=== PATIENT | female | born 1965 | race Caucasian/White ===

== ENCOUNTER → 2019-06-30 | Outpatient (CLI) | payer BC ==
[2019-06-30 12:16] VITALS: BP 121/80; PULSE 73; RESP 18; TEMP 98.2
--- NOTE | 2019-06-30 13:12 | P.GSHP ---
History of Present Illness H&P Date: 06/30/19 Chief Complaint: abnormal mammogramof the right breast Ashley a 53-year-old white female seen in consultation for Char Deleon regarding her mammographic abnormality of the right breast. She had a bilateral mammogram in March 2019 which revealed some distortion and calcifications in the right breast. It was recommended to undergo a stereotactic core biopsy of an area of distortion as well as the microcalcifications in the right breast. It does not feel anything of concern in her breasts. She is not complaining of any pain in her breast. She is to have any nipple discharge or skin changes. She has had no recent trauma or infection in her breast. She was told when she was younger that she had fibrocystic breast disease related to caffeine intake. caffeine: occasionally chocolate: occasional smoke: none, no second hand smoke Family History: father: colon cancer Hormonal History: menarche: 11 , breast fed: no, first born at 15 menopause: 53 BCP: 5 years hormones:none Surgical history: 1. Tubal ligation 2. gallbaldder 3. knee replaced right side Medical History: none Social History: smoke: none alcohol: occasional 2x/year drugs: none - Constitutional Constitutional: Denies chills, Denies fever - EENT Eyes: denies blurred vision, denies pain Ears: deny: decreased hearing, tinnitus Ears, nose, mouth and throat: Denies headache, Denies sore throat - Breasts Breasts: bilateral: as per HPI - Cardiovascular Cardiovascular: Denies chest pain, Denies shortness of breath - Respiratory Respiratory: Denies cough, Denies 7 - Gastrointestinal Gastrointestinal: Denies abdominal pain, Denies diarrhea, Denies nausea, Denies vomiting - Genitourinary (Female) Genitourinary: Reports kidney stones - Menstruation Menstruation: Reports postmenopausal - Musculoskeletal Comment: knee pain - Integumentary Integumentary: Denies pruritus, Denies rash - Neurological Neurological: Denies numbness, Denies weakness - Psychiatric Psychiatric: Denies anxiety, Denies depression - Endocrine Endocrine: Denies fatigue, Denies weight change - Hematologic/Lymphatic Comment: none - Allergic/Immunologic Allergic/Immunologic: Reports as per HPI Past Medical History Past Medical History: Osteoarthritis (OA) History of Any Multi-Drug Resistant Organisms: None Reported Past Surgical History: Orthopedic Surgery, Tubal Ligation Additional Past Surgical History / Comment(s): ARTHROSCOPIC RIGHT AND LEFT KNEE, CONE BIOPSY Past Anesthesia/Blood Transfusion Reactions: Family History of Problems w/ Anesthesia Additional Past Anesthesia/Blood Transfusion Reaction / Comment(s): MOM GETS VERY AGITATED WITH ANESTHESIA Past Psychological History: No Psychological Hx Reported Smoking Status: Never smoker Past Alcohol Use History: Rare Past Drug Use History: None Reported - Past Family History Mother Family Medical History: No Reported History Medications and Allergies Home Medications Medication Instructions Recorded Confirmed Type Ibuprofen [Motrin] 400 mg PO Q6HR PRN 06/30/19 06/30/19 History Thrive 1 can PO DAILY 06/30/19 06/30/19 History Allergies Allergy/AdvReac Type Severity Reaction Status Date / Time adhesive tape Allergy BLISTERS Verified 06/30/19 12:16 Surgical - Exam Vital Signs Temp Pulse Resp BP Pulse Ox 98.2 F 73 18 121/80 97 06/30/19 12:12 06/30/19 12:12 06/30/19 12:12 06/30/19 12:12 06/30/19 12:12 BMI 37.1 - General obese - Eyes normal ocular movement, no icteric - ENT normal pinna, normal nares, no hearing loss, no congestion - Neck no masses, trachea midline, no lymphadectomy - Respiratory normal expansion, normal respiratory effort, clear to percussion, clear to auscultation - Cardiovascular Rhythm: regular Heart Sounds: normal: S1, S2 - Abdomen Abdomen: soft, non tender, no guarding, no rigid, no rebound - Integumentary normal turgor - Neurologic normal coordination, no disoriented, no combative - Musculoskeletal normal gait, normal posture - Psychiatric oriented to time, oriented to person, oriented to place, speech is normal, memory intact breast exam: Breasts: Multiple positional exam no dominant masses or nodules of concern, particularly attention to the upper outer quadrant did not reveal any lesions of concern Right axilla: No adenopathy of concern Left breast: Multiple positional exam no dominant masses or nodules of concern Left axilla: No adenopathy of concern Results Mammogram results from [facility] reviewed it has been recommended. An ultrasound of the right breast be performed. To ascertain if the density can be seen, if so she will have an ultrasound core biopsy of the area of density and in stereo biopsy of the area of calcifications. Assessment and Plan Assessment: Impression: 1. Abnormal mammogram right breast 2. Fibrocystic breast changes 3. Anxiety 4. History of cancer Plan: 1. Ultrasound of the right breast being performed today, if this shows the area of distortion the patient will have 2 areas biopsied in the right breast that area of distortion by ultrasound core biopsy in the area of calcification the stereo core biopsy If the ultrasound does not reveal the area of distortion then patient will have 3-D stereo biopsy of the area of distortion as well as the microcalcifications I have reviewed the radiographs with the radiologist, the area of distortion is somewhat suspicious, if this comes back benign breast tissue we may consider to be discordant. Have discussed the risks and benefits of the procedures with the patient. She understands and wishes to proceed. She is very anxious regarding needles. I have explained that the area would be anesthetized. Risk include bleeding, infection, and possible reaction to the anesthetic. There is also a possibility of a discordant result which could result in recommendation for excision in the operating room. Patient understands and wishes to proceed. Cc: Shital Cota Encounter approximately 30 minutes, greater than 50% of time spent in planning and counseling. Time with Patient: Greater than 30 (coordination of case for two areas of the right breast, ? if area of distortion can be een by ultrasound, ultrasound to be done today)
--- NOTE | 2019-07-01 07:25 | USB ---
Reason for exam: clinical finding. US Breast RT Right complete breast ultrasound includes all four quadrants, the retroareolar region and axilla. Finding demonstrates a 7 x 3 x 7mm oval lipoma at 12 o'clock. No sonographic correlate to the right architectural distortion seen on the outside mammogram. These results were verbally communicated with the patient and result sheet given to the patient on 06/30/19. ASSESSMENT: Suspicious, BI-RAD 4 RECOMMENDATION: Stereotactic core biopsy of the right breast. (3D stereo regarding right distortion and calcifications, 2 site) Called Dr. Castillo's office with mammographic findings. PRELIMINARY REPORT CALLED AND FAXED TO DR. CASTILLO ON 07/01/19.
== END ==
LOC: WWCWWP 11:57
PROVIDERS: ATTEND Surgery
DX: R92.8 Other abnormal and inconclusive findings on diagnostic imaging of breast (principal)

== ENCOUNTER → 2019-07-29 | Outpatient (CLI) | payer BC ==
[2019-07-29 14:31] VITALS: BP 105/67; PULSE 68; RESP 18; TEMP 97.9
--- NOTE | 2019-07-29 14:38 | P.PN ---
Progress Note - Text Progress Note Date: 07/29/19 Ashley is a 54 year old white female status post tactic core biopsy of the right breast on . Pathology was benign fibrocystic change no atypical hyperplasia or malignancy identified. The patient is concerned about some erythema at the site at this time. She has no fever or chills. Physical Exam: Lungs: Clear Heart: Regular rate and rhythm Right breast: Area of erythema approximately 7 cm x 5 cm it does not appear infected or raised Impression: 1. benign fibrocystic changes right breast 2. steroid cream to right breast/hydrocortisone cream to area TID, probable hypersensitivity reaction to the tape 3. Right breast mammogram in 6 months for physician exam at that time CC: Char Gates encounter 15 minutes, > 50% of time in planning and counselling
== END | disposition home or self-care (01) ==
LOC: WWCWWP 14:17
PROVIDERS: ATTEND Surgery
DX: Z53.9 Procedure and treatment not carried out, unspecified reason (principal)

== ENCOUNTER → 2020-01-26 | Outpatient (CLI) | payer BC ==
[2020-01-26 12:40] VITALS: BP 99/66; PULSE 81; RESP 16; TEMP 98.5
--- NOTE | 2020-01-26 13:08 | P.PN ---
Subjective Progress Note Date: 01/26/20 Principal diagnosis: Fibrocystic breast changes Ashley is a 54-year-old white female seen in consultation for Char Deleon on 07-29-19 regarding a mammographic abnormality of the right breast. She had a bilateral mammogram in March 2019 which revealed some distortion and calcifica tions in the right breast. It was recommended to undergo a stereotactic core biopsy of an area of distortion as well as the microcalcifications in the right breast. She did not feel anything of concern in her breasts. She was not complaining of any pain in her breast. She did not have any nipple discharge or skin changes. She had no recent trauma or infection in her breast. She was told when she was younger that she had fibrocystic breast disease related to caffeine intake. She underwent a stero biopsy on 07-21-19. Pathology was benign/concordant. The second area of architectual distortion was not seen on attempt to biopsy. A repeat right breast mammogram was done on 01-24-20. This was reviewed with DR. Copeland and felt to be benign. The patient does not feel anything of concern in e ither breast. She is not complaining of any masses lumps in her breast or discharge from her nipples. Is not complaining of any pain in her breast. No history of recent trauma or infection to the breast. caffeine: occasionally chocolate: occasional smoke: none, no second hand smoke Family History: father: colon cancer Hormonal History: menarche: 11 , breast fed: no, first born at 15 menopause: 53 BCP: 5 years hormones:none Surgical history: 1. Tubal ligation 2. gallbaldder 3. knee replaced right side Medical History: none Social History: smoke: none alcohol: occasional 2x/year drugs: none - Constitutional Constitutional: Denies chills, Denies fever - EENT Eyes: denies blurred vision, denies pain Ears: deny: decreased hearing, tinnitus Ears, nose, mouth and throat: Denies headache, Denies sore throat - Breasts Breasts: bilateral: as per HPI - Cardiovascular Cardiovascular: Denies chest pain, Denies shortness of breath - Respiratory Respiratory: Denies cough, Denies 7 - Gastrointestinal Gastrointestinal: Denies abdominal pain, Denies diarrhea, Denies nausea, Denies vomiting - Genitourinary (Female) Genitourinary: Reports kidney stones - Menstruation Menstruation: Reports postmenopausal - Musculoskeletal Comment: knee pain - Integumentary Integumentary: Denies pruritus, Denies rash - Neurological Neurological: Denies numbness, Denies weakness - Psychiatric Psychiatric: Denies anxiety, Denies depression - Endocrine Endocrine: Denies fatigue, Denies weight change - Hematologic/Lymphatic Comment: none - Allergic/Immunologic Allergic/Immunologic: Reports as per HPI Objective - Vital Signs Vital signs: Vital Signs Temp 98.5 F 01/26/20 12:35 Pulse 81 01/26/20 12:35 Resp 16 01/26/20 12:35 BP 99/66 01/26/20 12:35 Pulse Ox 95 01/26/20 12:35 Intake & Output 01/25/20 01/26/20 01/26/20 18:59 06:59 18:59 Weight 69.853 kg - Exam BMI 29.1 - Constitutional General appearance: Present: average body habitus - EENT ENT: Present: hearing grossly normal - Neck Neck: Present: normal ROM - Respiratory Respiratory: bilateral: CTA - Cardiovascular Rhythm: regular Heart sounds: normal: S1, S2 - Gastrointestinal General gastrointestinal: Present: soft - Integumentary Integumentary: Present: normal turgor - Musculoskeletal Musculoskeletal: Present: gait normal - Psychiatric Psychiatric: Present: A&O x's 3, appropriate affect, intact judgment & insight - Additional findings Additional findings: breast exam: BRA 38D inspection: grade 3 ptosis bilateral palpation: right breast: Multiple positional exam no dominant masses or nodules of concern, fibrocystic changes alignment axilla: No adenopathy of concern Left breast: Multiple positional exam no dominant masses or nodules of concern, fibrocystic changes Left axilla: No adenopathy of concern Assessment and Plan Assessment: Impression: 1. Fibrocystic breast disease bilateral Plan: 1. Repeat bilateral mammogram on schedule for June 2020 2. Follow-up at that time 3. Patient is follow up sooner if any questions or concerns Cc: Dr. Mala Martinez encounter 15 minutes, > 50% of time in planning and counselling
== END | disposition home or self-care (01) ==
LOC: WWCWWP 12:21
PROVIDERS: ATTEND Surgery
DX: Z53.9 Procedure and treatment not carried out, unspecified reason (principal)

== ENCOUNTER → 2020-07-26 | Outpatient (CLI) | payer BC ==
--- NOTE | 2020-07-27 14:09 | MM ---
Reason for exam: screening (asymptomatic). Last mammogram was performed 6 months ago. History: Patient is postmenopausal. Benign stereotactic core biopsy of the right breast, July 2019. Physical Findings: A clinical breast exam by your physician is recommended on an annual basis and results should be correlated with mammographic findings. MG Screening Mammo w CAD Bilateral CC and MLO view(s) were taken. Prior study comparison: January 24, 2020, right breast MG diagnostic mammo RT w CAD. The breast tissue is heterogeneously dense. This may lower the sensitivity of mammography. There is no discrete abnormality. No significant changes when compared with prior studies. ASSESSMENT: Negative, BI-RAD 1 RECOMMENDATION: Routine screening mammogram of both breasts in 1 year.
== END | disposition home or self-care (01) ==
LOC: RADMAMWWP 10:26
PROVIDERS: ATTEND Surgery
DX: Z12.31 Encounter for screening mammogram for malignant neoplasm of breast (principal)
CPT/HCPCS: 77067

== ENCOUNTER → 2020-08-02 | Outpatient (CLI) | payer BC ==
--- NOTE | 2020-08-02 11:47 | P.PN ---
Subjective Progress Note Date: 08/02/20 Principal diagnosis: Fibrocystic breast changes Fibrocystic breast changes Ashley is a 55-year-old white female seen in consultation for Char Deleon on 07-29-19 regarding a mammographic abnormality of the right breast. She had a bilateral mammogram in March 2019 which revealed some distortion and calcifications in the right breast. It was recommended to undergo a stereotactic core biopsy of an area of distortion as well as the microcalcifications in the right breast. She did not feel anything of concern in her breasts. She was not complaining of any pain in her breast. She did not have any nipple discharge or skin changes. She had no recent trauma or infection in her breast. She was told when she was younger that she had fibrocystic breast disease related to caffeine intake. She underwent a stero biopsy on 07-21-19. Pathology was benign/concordant. The second area of architectual distortion was not seen on attempt to biopsy. A repeat right breast mammogram was done on 01-24-20. This was reviewed with DR. Copeland and felt to be benign. The patient does not feel anything of concern in either breast. She is not complaining of any masses lumps in her breast or discharge from her nipples. Is not complaining of any pain in her breast. No history of recent trauma or infection to the breast. The patient is not complaining of any lumps masses or nodules in her breast at this time. Is not complaining of any pain, nipple discharge or skin changes. She had a bilateral mammogram on which was benign BIRADS 1. caffeine: occasionally chocolate: occasional smoke: none, no second hand smoke Family History: father: colon cancer Hormonal History: menarche: 11 , breast fed: no, first born at 15 menopause: 53 BCP: 5 years hormones:none Surgical history: 1. Tubal ligation 2. gallbaldder 3. knee replaced right side Medical History: none Social History: smoke: none alcohol: occasional 2x/year drugs: none - Constitutional Constitutional: Denies chills, Denies fever - EENT Eyes: denies blurred vision, denies pain Ears: deny: decreased hearing, tinnitus Ears, nose, mouth and throat: Denies headache, Denies sore throat - Breasts Breasts: bilateral: as per HPI - Cardiovascular Cardiovascular: Denies chest pain, Denies shortness of breath - Respiratory Respiratory: Denies cough - Gastrointestinal Gastrointestinal: Denies abdominal pain, Denies diarrhea, Denies nausea, Denies vomiting - Genitourinary (Female) Genitourinary: Reports kidney stones - Menstruation Menstruation: Reports postmenopausal - Musculoskeletal Comment: knee pain - Integumentary Integumentary: Denies pruritus, Denies rash - Neurological Neurological: Denies numbness, Denies weakness - Psychiatric Psychiatric: Denies anxiety, Denies depression - Endocrine Endocrine: Denies fatigue, Denies weight change - Hematologic/Lymphatic Comment: none - Allergic/Immunologic Allergic/Immunologic: Reports as per HPI Objective - Constitutional General appearance: Present: average body habitus - EENT Eyes: Present: EOMI ENT: Present: hearing grossly normal - Neck Neck: Present: normal ROM - Respiratory Respiratory: bilateral: CTA - Cardiovascular Rhythm: regular Heart sounds: normal: S1, S2 - Gastrointestinal General gastrointestinal: Present: normal bowel sounds, soft - Integumentary Integumentary: Present: normal turgor - Musculoskeletal Musculoskeletal: Present: gait normal - Psychiatric Psychiatric: Present: A&O x's 3, appropriate affect, intact judgment & insight - Additional findings Additional findings: breast exam: BRA 38C inspection: Bilateral grade 3 ptosis; Right breast slightly larger than left breast Palpation: Right breast: Multiple positional exam fibrocystic changes, no dominant masses or nodules of concern Right axilla: No adenopathy of concern Left breast: Multiple positional exam fibrocystic changes, no dominant masses or nodules of concern Left axilla: No adenopathy of concern Assessment and Plan Assessment: Impression: 1. Fibrocystic breast changes 2. No dominant masses or nodules of concern to warrant any anginal biopsy Plan: 1. Patient to call if she notes any changes of concern in her breast 2. Bilateral mammogram in 1 year with physician exam at that time Cc: Char Deleon encounter 15 minutes, time spent in reviewing medical records, physical examination, and counseling
[2020-08-02 11:57] VITALS: BP 105/70; PULSE 76; RESP 16; TEMP 98.3
== END | disposition home or self-care (01) ==
LOC: WWCWWP 11:36
PROVIDERS: ATTEND Surgery
DX: Z53.9 Procedure and treatment not carried out, unspecified reason (principal)

== ENCOUNTER → 2021-07-29 | Outpatient (CLI) | payer BC ==
--- NOTE | 2021-07-30 08:18 | MM ---
Reason for exam: screening (asymptomatic). Last mammogram was performed 1 year ago. History: Patient is postmenopausal. Benign stereotactic core biopsy of the right breast, July 2019. Physical Findings: A clinical breast exam by your physician is recommended on an annual basis and results should be correlated with mammographic findings. MG Screening Mammo w CAD Bilateral CC and MLO view(s) were taken. Prior study comparison: July 26, 2020, bilateral MG screening mammo w CAD. June 30, 2019, right breast US breast RT. The breast tissue is heterogeneously dense. This may lower the sensitivity of mammography. There are benign appearing vascular calcifications bilaterally. Previous mammotome biopsy in the right breast. There is no discrete abnormality. ASSESSMENT: Benign, BI-RAD 2 RECOMMENDATION: Routine screening mammogram of both breasts in 1 year.
== END | disposition home or self-care (01) ==
LOC: RADMAMWWP 09:59
PROVIDERS: ATTEND Surgery
DX: Z12.31 Encounter for screening mammogram for malignant neoplasm of breast (principal); Z78.0 Asymptomatic menopausal state
CPT/HCPCS: 77067

== ENCOUNTER → 2021-08-23 | Outpatient (CLI) | payer BC ==
[2021-08-23 11:32] VITALS: BP 112/75; PULSE 74; RESP 18; TEMP 98
--- NOTE | 2021-08-23 12:19 | P.PN ---
Subjective Progress Note Date: 08/23/21 Principal diagnosis: fibrocystic breast changes Fibrocystic breast changes Ashley is a 55-year-old white female seen in consultation for Char Deleon on 07-29-19 regarding a mammographic abnormality of the right breast. She had a bilateral mammogram in March 2019 which revealed some distortion and calcifications in the right breast. It was recommended to undergo a stereotactic core biopsy of an area of distortion as well as the microcalcifications in the right breast. She did not feel anything of concern in her breasts. She was not complaining of any pain in her breast. She did not have any nipple discharge or skin changes. She had no recent trauma or infection in her breast. She was told when she was younger that she had fibrocystic breast disease related to caffeine intake. She underwent a stero biopsy on 07-21-19. Pathology was benign/concordant. The second area of architectual distortion was not seen on attempt to biopsy. A repeat right breast mammogram was done on 01-24-20. This was reviewed with DR. Copeland and felt to be benign. The patient does not feel anything of concern in either breast. She is not complaining of any masses lumps in her breast or discharge from her nipples. Is not complaining of any pain in her breast. No history of recent trauma or infection to the breast. The patient is not complaining of any lumps masses or nodules in her breast at this time. Is not complaining of any pain, nipple discharge or skin changes. She had a bilateral mammogram on which was benign BIRADS 1. 08-23-21 Bilateral mammogram on 07-29-21 benign BIRAD 2. She is not complaining of any lumps masses or nodules of concern in either breast. She is not complaining of any nipple discharge or skin changes. She has not had any recent trauma or infection in the breast. caffeine: occasionally chocolate: occasional smoke: none, no second hand smoke Family History: father: colon cancer Hormonal History: menarche: 11 , breast fed: no, first born at 15 menopause: 53 BCP: 5 years hormones:none Surgical history: 1. Tubal ligation 2. gallbaldder 3. knee replaced right side Medical History: none Social History: smoke: none alcohol: occasional 2x/year drugs: none - Constitutional Constitutional: Denies chills, Denies fever - EENT Eyes: denies blurred vision, denies pain Ears: deny: decreased hearing, tinnitus Ears, nose, mouth and throat: Denies headache, Denies sore throat - Breasts Breasts: bilateral: as per HPI - Cardiovascular Cardiovascular: Denies chest pain, Denies shortness of breath - Respiratory Respiratory: Denies cough - Gastrointestinal Gastrointestinal: Denies abdominal pain, Denies diarrhea, Denies nausea, Denies vomiting - Genitourinary (Female) Genitourinary: Reports kidney stones - Menstruation Menstruation: Reports postmenopausal - Musculoskeletal Comment: knee pain - Integumentary Integumentary: Denies pruritus, Denies rash - Neurological Neurological: Denies numbness, Denies weakness - Psychiatric Psychiatric: Denies anxiety, Denies depression - Endocrine Endocrine: Denies fatigue, Denies weight change - Hematologic/Lymphatic Comment: none - Allergic/Immunologic Allergic/Immunologic: Reports as per HPI Objective - Vital Signs Vital signs: Vital Signs Temp 98.0 F 08/23/21 11:30 Pulse 74 08/23/21 11:30 Resp 18 08/23/21 11:30 BP 112/75 08/23/21 11:30 Pulse Ox 98 08/23/21 11:30 Intake & Output 08/22/21 08/23/21 08/23/21 18:59 06:59 18:59 Weight 72.575 kg - Exam BMI 31.2 - Constitutional General appearance: Present: cooperative - EENT Eyes: Present: EOMI ENT: Present: hearing grossly normal - Neck Neck: Present: normal ROM - Respiratory Respiratory: bilateral: CTA - Cardiovascular Rhythm: regular Heart sounds: normal: S1, S2 - Gastrointestinal General gastrointestinal: Present: soft - Integumentary Integumentary Comment(s): tattoo back Integumentary: Present: normal turgor - Musculoskeletal Musculoskeletal: Present: gait normal - Psychiatric Psychiatric: Present: A&O x's 3, appropriate affect, intact judgment & insight - Additional findings Additional findings: Breast Exam: BRA: 38D inspection: bilateral grade 3 ptosis palpation: right breast: Multi-positional exam fibrocystic changes no dominant masses or nodules of concern Right axilla: No adenopathy of concern Left breast: Multi-positional exam fibrocystic changes no dominant masses or nodules of concern Left axilla: No adenopathy of concern Assessment and Plan Assessment: Impression: Bilateral fibrocystic breast changes Recent bilateral mammogram 130 122 benign BIRADS 2 Plan: 1. Bilateral mammogram in 1 year with physician exam at that time Patient to call sooner if any questions or concerns CC: Char Deleon
== END ==
LOC: WWCWWP 10:44
PROVIDERS: ATTEND Surgery
DX: N60.12 Diffuse cystic mastopathy of left breast (principal); N60.11 Diffuse cystic mastopathy of right breast; Z91.048 Other nonmedicinal substance allergy status

== ENCOUNTER → 2022-10-17 | Outpatient (CLI) | payer BC, OTHER ==
[2022-10-17 09:19] VITALS: BP 110/66; PULSE 95; RESP 18; TEMP 97.5
--- NOTE | 2022-10-17 09:24 | P.PN ---
Subjective Progress Note Date: 10/17/22 Principal diagnosis: fibrocystic breast changes fibrocystic breast changes Ashley is a 55-year-old white female seen in consultation for Char Deleon on 07-29-19 regarding a mammographic abnormality of the right breast. She had a bilateral mammogram in March 2019 which revealed some distortion and calcifications in the right breast. It was recommended to undergo a stereotactic core biopsy of an area of distortion as well as the microcalcifications in the right breast. She did not feel anything of concern in her breasts. She was not complaining of any pain in her breast. She did not have any nipple discharge or skin changes. She had no recent trauma or infection in her breast. She was told when she was younger that she had fibrocystic breast disease related to caffeine intake. She underwent a stero biopsy on 07-21-19. Pathology was benign/concordant. The second area of architectual distortion was not seen on attempt to biopsy. A repeat right breast mammogram was done on 01-24-20. This was reviewed with DR. Copeland and felt to be benign. The patient does not feel anything of concern in either breast. She is not complaining of any masses lumps in her breast or discharge from her nipples. Is not complaining of any pain in her breast. No history of recent trauma or infection to the breast. The patient is not complaining of any lumps masses or nodules in her breast at this time. Is not complaining of any pain, nipple discharge or skin changes. She had a bilateral mammogram on which was benign BIRADS 1. 08-23-21 Bilateral mammogram on 07-29-21 benign BIRAD 2. She is not complaining of any lumps masses or nodules of concern in either breast. She is not complaining of any nipple discharge or skin changes. She has not had any recent trauma or infection in the breast. 10-17-22 Ashley had a bilateral mammogram on 08-08-22 which was BIRAD 2. The patient is not complaining of any new lumps masses or nodules of concern in either breast. She is not complaining of any nipple discharge or skin changes. She has not had any recent trauma or infection in the breast. caffeine: occasionally chocolate: occasional smoke: none, no second hand smoke Family History: father: colon cancer Hormonal History: menarche: 11 , breast fed: no, first born at 15 menopause: 53 BCP: 5 years hormones:none Surgical history: 1. Tubal ligation 2. gallbaldder 3. knee replaced right side Medical History: none Social History: smoke: none alcohol: occasional 2x/year drugs: none - Constitutional Constitutional: Denies chills, Denies fever - EENT Eyes: denies blurred vision, denies pain Ears: deny: decreased hearing, tinnitus Ears, nose, mouth and throat: Denies headache, Denies sore throat - Breasts Breasts: bilateral: as per HPI - Cardiovascular Cardiovascular: Denies chest pain, Denies shortness of breath - Respiratory Respiratory: Denies cough - Gastrointestinal Gastrointestinal: Denies abdominal pain, Denies diarrhea, Denies nausea, Denies vomiting - Genitourinary (Female) Genitourinary: Reports kidney stones - Menstruation Menstruation: Reports postmenopausal - Musculoskeletal Comment: knee pain - Integumentary Integumentary: Denies pruritus, Denies rash - Neurological Neurological: Denies numbness, Denies weakness - Psychiatric Psychiatric: Denies anxiety, Denies depression - Endocrine Endocrine: Denies fatigue, Denies weight change - Hematologic/Lymphatic Comment: none - Allergic/Immunologic Allergic/Immunologic: Reports as per HPI Objective - Vital Signs Vital signs: Intake & Output 10/16/22 10/17/22 10/17/22 18:59 06:59 18:59 Weight 83.007 kg - Constitutional General appearance: Present: cooperative - EENT Eyes: Present: EOMI - Neck Neck: Present: normal ROM - Respiratory Respiratory: bilateral: CTA - Cardiovascular Rhythm: regular Heart sounds: normal: S1, S2 - Gastrointestinal General gastrointestinal: Present: soft - Integumentary Integumentary: Present: normal turgor - Musculoskeletal Musculoskeletal: Present: gait normal - Psychiatric Psychiatric: Present: A&O x's 3, appropriate affect, intact judgment & insight - Additional findings Additional findings: Breast Exam: BRA: 38D inspection: bilateral grade 3 ptosis palpation: right breast: Multi-positional exam fibrocystic changes no dominant masses or nodules of concern Right axilla: No adenopathy of concern Left breast: Multi-positional exam fibrocystic changes no dominant masses or nodules of concern Left axilla: No adenopathy of concern Assessment and Plan Assessment: Impression: Bilateral fibrocystic breast changes Recent bilateral mammogram 08-08-23 benign BIRADS 2 Plan: 1. Bilateral mammogram in 1 year with physician exam at that time Patient to call sooner if any questions or concerns CC: Char Deleon
== END ==
LOC: WWCWWP 09:10
PROVIDERS: ATTEND Surgery
DX: N60.11 Diffuse cystic mastopathy of right breast (principal); N60.12 Diffuse cystic mastopathy of left breast; Z80.0 Family history of malignant neoplasm of digestive organs; Z91.048 Other nonmedicinal substance allergy status

== ENCOUNTER → 2023-08-10 | Outpatient (CLI) | payer OTHER ==
--- NOTE | 2023-08-11 08:39 | MM ---
Reason for Exam: Screening (asymptomatic). Last screening mammogram was performed 12 month(s) ago. Patient History: Menarche at age 10. First Full-Term at age 15. Postmenopausal. 07/2019, Benign Stereotactic Core Biopsy on the right side. Risk Values: Raay 5 year model risk: 1.3%. NCI Lifetime model risk: 7.0%. Prior Study Comparison: 07/26/2020 Bilateral Screening Mammogram, [facility]. 07/29/2021 Bilateral Screening Mammogram, [facility]. 08/08/2022 Bilateral MG screening mammo w CAD, [facility]. Tissue Density: The breast tissue is heterogeneously dense. This may lower the sensitivity of mammography. Findings: Analyzed By CAD. Right breast biopsy clip. There is no suspicious group of microcalcifications or new suspicious mass. Benign-appearing calcifications bilaterally. Overall Assessment: Benign, BI-RAD 2 Management: Screening Mammogram of both breasts in [address] [facility] will attempt to contact patient to return for supplemental views and ultrasound if indicated. Patient should continue monthly self-breast exams. A clinical breast exam by your physician is recommended on an annual basis. This exam should not preclude additional follow-up of suspicious palpable abnormalities. Note on Raya scores and lifetime risk: 1. A Raya score greater than 3% is considered moderate risk. If this is the case, consider specialist referral to assess eligibility for a risk reducing agent. 2. If overall lifetime risk for the development of breast cancer is 20% or higher, the patient may qualify for future screening with alternating mammogram and breast MRI. Electronically signed and approved by: Gerard Sanches DO
== END | disposition home or self-care (01) ==
LOC: RADMAMWWP 09:15
PROVIDERS: ATTEND Surgery
DX: Z12.31 Encounter for screening mammogram for malignant neoplasm of breast (principal); Z78.0 Asymptomatic menopausal state
CPT/HCPCS: 77063; 77067

== ENCOUNTER → 2023-08-14 | Outpatient (CLI) | payer OTHER | LOC: WWCWWP 10:09 | PROVIDERS: ATTEND Surgery | DX: R92.8 Other abnormal and inconclusive findings on diagnostic imaging of breast (principal); Z91.048 Other nonmedicinal substance allergy status ==

== ENCOUNTER 2023-12-08 05:48 | Observation (INO) | payer OTHER ==
[2023-12-04 15:26] VITALS: BMI 39.2
--- NOTE | 2023-12-07 21:13 | P.HPIHPCON ---
History of Present Illness H&P Date: 12/07/23 Chief Complaint: right sided renal stone This is a 58-year-old female with history of a 2.6 cm right-sided renal pelvic stone, causing recurrent UTIs intermittent gross hematuria and pain. Discussed with her given the size of the stone the options would be staged ureteroscopy versus PCNL risk and benefit of each approach were discussed in details, she agreed to proceed with a PCNL, aware the risk which includes but not limited to bleeding, infection, injury to nearby organs which includes but not limited to the bowel, liver, lung. Risk of anesthesia was also discussed. Discussed potential persistent UTI even with stone removal. She understood all the risk and agreed to proceed Consent for Procedure: I have explained the operation/procedure to the patient, including the risks, benefits, side effects, alternative therapies (including not receiving the proposed treatment or service), the likelihood of the patient achieving his/her goals, and potential recuperation problems for the procedure/sedation/analgesia, as well as any blood products, if indicated. I also explained to the patient the risks, benefits and side effects of the alternatives, as well as the risks related to not receiving the proposed procedure, care, treatment, or services. Past Medical History Past Medical History: Osteoarthritis (OA) Additional Past Medical History / Comment(s): KIDNEY STONES History of Any Multi-Drug Resistant Organisms: None Reported Past Surgical History: Orthopedic Surgery, Tubal Ligation Additional Past Surgical History / Comment(s): ARTHROSCOPIC RIGHT AND LEFT KNEE; benign right breast stereo biopsy 07/21/19; right knee replacement; Past Anesthesia/Blood Transfusion Reactions: Family History of Problems w/ Anesthesia Additional Past Anesthesia/Blood Transfusion Reaction / Comment(s): MOM GETS VERY AGITATED WITH ANESTHESIA Smoking Status: Never smoker - Past Family History Mother Family Medical History: No Reported History Medications and Allergies Home Medications Medication Instructions Recorded Confirmed Type Thrive-Mvi 1 tab PO DAILY 12/04/23 History U Nita-Otc 1 tab PO DAILY 12/04/23 History Venlafaxine HCl [Effexor] 37.5 mg PO DAILY 12/04/23 12/04/23 History Allergies Allergy/AdvReac Type Severity Reaction Status Date / Time adhesive tape Allergy BLISTERS Verified 10/17/22 09:16 Surgical - Exam - General no distress, moderate pain - Eyes normal ocular movement, no pale - Respiratory normal expansion, normal respiratory effort - Abdomen Abdomen: soft, non tender - Psychiatric oriented to time, oriented to person, oriented to place Assessment and Plan Assessment: OR for right-sided PCNL
[~2023-12-08 05:48] MED LIST: GENTAMICIN 120 MG in SODIUM CHLORIDE 0.9% 100 ML IVPB PRN
--- NOTE | 2023-12-08 06:32 | XR ---
EXAMINATION TYPE: XR KUB DATE OF EXAM: 12/08/2023 6:13 AM CLINICAL HISTORY: Kidney stones. TECHNIQUE: Single supine KUB image of the abdomen is obtained. COMPARISON: Prior abdominal x-ray 2011. FINDINGS: Dominant 2.6 cm right renal calculus at superior L2 level. There is a 4 mm calculus inferio r and lateral to this over the lateral right 12th rib. Just inferior to this there is 6 mm metallic f ragment. No definitive left-sided nephrolithiasis. Scattered tiny bilateral pelvic phleboliths. Overall nonobstructive bowel gas pattern. Osseous structures are intact. IMPRESSION: Dominant 2.6 cm right renal calculus.
[2023-12-08] MEDS: DEXAMETHASONE SOD PHOSPHATE 4 MG/ML 1 ML VIAL IV ONE (06:59)
[2023-12-08] MEDS: LACTATED RINGERS 1,000 ML IV SCH (06:59)
[2023-12-08] MEDS: ONDANSETRON 4 MG/2 ML VIAL IVP ONE (07:00)
[2023-12-08] MEDS ORDERED: MIDAZOLAM 2 MG/2 ML VIAL IV PRN (07:00)
[2023-12-08] MEDS: IV FLUID CONTINUATION 1,000 ML IV ONE ×2 (07:03→10:27)
[2023-12-08] MEDS ORDERED: LIDOCAINE 1% INJ 10MG/ML (20 ML MDV) ONE (07:30)
[2023-12-08] MEDS ORDERED: SUCCINYLCHOLINE CHLORIDE 200 MG/10 ML VIAL IV ONE (07:30)
[2023-12-08] MEDS ORDERED: HYDROmorphone (PF) 1 MG/ML ONE (07:30)
[2023-12-08] MEDS ORDERED: GLYCOPYRROLATE 0.2 MG/ML 2 ML VIAL ONE (07:30)
[2023-12-08] MEDS ORDERED: MIDAZOLAM 2 MG/2 ML VIAL ONE (07:30)
[2023-12-08] MEDS ORDERED: ROCURONIUM 10 MG/ML (5 ML VIAL) IV ONE (07:30)
[2023-12-08] MEDS ORDERED: NEOSTIGMINE 1 MG/ML 10 ML VIAL ONE (07:30)
[2023-12-08] MEDS ORDERED: PROPOFOL 10 MG/ML 20 ML VIAL IV ONE (07:30)
[2023-12-08] MEDS ORDERED: PHENYLEPHRINE 10 MG/ML VIAL ONE (07:30)
[2023-12-08] MEDS ORDERED: fentaNYL (PF) 50 MCG/ML 2 ML AMP ONE (07:30)
[2023-12-08] MEDS: IOPAMIDOL-370 50ML BTL MISCELLANE ONE (08:13)
--- NOTE | 2023-12-08 08:31 | P.PCN ---
Date of Procedure: 12/08/23 Preoperative Diagnosis: right renal stone, large greater than 3 cm Postoperative Diagnosis: same Procedure(s) Performed: right percutaneous access Anesthesia: DAVID Surgeon: Brian Laura Pathology: none sent Condition: stable Disposition: PACU Indications for Procedure: the patient is 58. She has a very large right renal pelvic stone and a small calyceal stone. She comes for right percutaneous nephrostolithotomy by . I have Been asked to do the percutaneous access. Description of Procedure: patient has previously been brought to the operating suite. She's been given a general anesthetic. has placed an occluding balloon ureteral catheter in the right proximal ureter. She's placed in a prone position with care to airways and extremities. After sterile prep and drape we injected the ureteral catheter with air to outline the posterior collecting system. The upper pole calyx is dilated and identified. A 21-gauge Chiba needle is introduced in the upper pole calyx. He was seen in 2 views of fluoroscopy to be in the calyx. The cope mandrel wire introduced through the Chiba needle into the collecting system and down the proximal ureter. I removed the Chiba needle and over the wire is then advanced the 6-Malay dilating catheter. Through the dilating catheter I passed an 035 straight wire into the collecting system. I then require a Kumpe catheter to direct the wire down the ureter. Advance a Kumpe catheter over the old 35 wire and exchanged the 035 wire with an 035 super stiff wire. I then over the Super Stiff wire pass the 8-10-Malay dilators. The inner dilator to removed and a second wires passed down the ureter. I then used the nephrostomy tract dilating balloon to dilate the tract to 30-Malay. Over the dilating balloon was passed the 30-Malay sheath into the collecting system.R then performs endoscopy make sure the sheath is in proper position and it is.
[2023-12-08] MEDS: HYDROmorphone 0.5 MG/0.5 ML SYRINGE IVP PRN (09:56)
[2023-12-08] MEDS ORDERED: ONDANSETRON 4 MG/2 ML VIAL IVP PRN (10:02)
[2023-12-08] MEDS ORDERED: ACETAMINOPHEN TAB 325 MG TAB PO PRN (10:02)
--- NOTE | 2023-12-08 10:02 | FL ---
EXAMINATION TYPE: FL Perc Nephrostomy New Access DATE OF EXAM: 12/08/2023 COMPARISON: NONE HISTORY: RENAL STONE TECHNIQUE: Fluoroscopy. FINDINGS: perc nephro in OR with dr. yates. fl time 330 secs and dap 4.51 IMPRESSION: As Above.
--- NOTE | 2023-12-08 10:11 | P.OP ---
Date of Procedure: 12/08/23 Preoperative Diagnosis: Right renal stone Postoperative Diagnosis: Same Procedure(s) Performed: Cystoscopy, right ureteral catheterization, PCNL (>2cm) nephrostomy tube placement Implants: none Anesthesia: DAVID Surgeon: Get Harris Estimated Blood Loss (ml): 100 Pathology: other (right renal stone) Condition: stable Disposition: PACU Indications for Procedure: This is a 58-year-old female with history of a 2.6 cm right-sided renal pelvic stone, causing recurrent UTIs intermittent gross hematuria and pain. Discussed with her given the size of the stone the options would be staged ureteroscopy versus PCNL risk and benefit of each approach were discussed in details, she agreed to proceed with a PCNL, aware the risk which includes but not limited to bleeding, infection, injury to nearby organs which includes but not limited to the bowel, liver, lung. Risk of anesthesia was also discussed. Discussed potential persistent UTI even with stone removal. She understood all the risk and agreed to proceed Operative Findings: large Right-sided renal pelvic stone Description of Procedure: Patient brought to the operating room, general anesthesia was induced. She was prepped and draped sterile fashion and placed in frog-leg position on the stretcher. Cystoscopy through the 21 English sheath was inserted per urethra, cystoscopy was performed which showed no abnormality within the bladder. The right ureter orifice was intubated with a sensor wire. Next of the balloon occlusion catheter was passed over the wire and into the kidney. Next a 16 English Montalvo was placed with return of clear urine. The catheter was secured to the occlusion balloon. At this point the patient was placed in prone position, all pressure points were padded. Next the right flank was prepped and draped in sterile fashion. Next access was obtained to the upper pole by Dr. Laura, please see his procedure note for that portion of the surgery. After 2 wires were seen going down the ureter next a a 30 English balloon dilators was used to dilate the tract, next a 30 English access sheath was advanced over the balloon under fluoroscopy into the upper pole. Next the rigid nephroscope was inserted through the access sheath, renoscopy was performed which showed a quite a large renal pelvic stone. Using the ultrasound lithotripter, the stone was fragmented, stone fragments were removed using the grasper, repeat renoscopy showed no sizable fragments or injury to the kidney, on fluoroscopy there was no radiopaque densities seen. This time I switched to the flexible cystoscope, complete renoscopy was performed which showed no injury to the kidney, or any's sizable stone fragments, I passed the scope into the proximal ureter which showed no stones going down the ureter, antegrade nephrostogram was performed which showed no filling defect along the course of the ureter. At this time a 12 English nephrostomy tube was passed over the wire through the access sheath and into the kidney, antegrade nephrostogram was performed which confirmed the nephrostomy tube to be within the renal pelvis, and there was no filling defect or evidence of contrast extravasation. At this time the access sheath was removed with the nephrostomy tube in place. The medial aspect of the incision was closed with 2-0 Vicryl, and the lateral aspect of the incision was closed with 2-0 nylon and the stitch was used to secure the nephrostomy tube in place. Sterile dressing was applied over the incision. Patient was awakened from anesthesia and taken to recovery in stable condition
[2023-12-08] MEDS: KETOROLAC 15 MG/ML 1 ML VIAL IVP SCH (10:15)
[2023-12-08] MEDS: SCOPOLAMINE 1 MG/72 HR PATCH TRANSDERM ONE (13:32)
[2023-12-08] MEDS: DEXTROSE 5%-0.45% NACL 1,000 ML IV SCH (13:38)
[2023-12-08] MEDS: HYDROmorphone 1 MG/ML 1 ML SYRINGE IVP PRN (16:59)
[2023-12-08] MEDS: HYDROcodone/APAP 5-325MG 1 EACH TAB PO PRN (18:58)
[2023-12-08] MEDS: HEPARIN SODIUM,PORCINE 5,000 UNIT/ML 1 ML VIAL SQ SCH (20:05)
[2023-12-08] MEDS: MAG HYDROX/AL HYDROX/SIMETH 30 ML CUP PO PRN (20:48)
[2023-12-09] MEDS: VENLAFAXINE HCL ER 37.5 MG CAP PO SCH (08:46)
[2023-12-09] MEDS ORDERED: VENLAFAXINE HCL 37.5 MG TAB PO SCH (09:00)
--- NOTE | 2023-12-09 09:31 | P.PN ---
Subjective Progress Note Date: 12/09/23 postoperative day #1 from a right percutaneous nephrostolithotomy. The patient is still having moderate amount of discomfort. Objective - Vital Signs Vital signs: Vital Signs Temp 97.9 F 12/09/23 07:05 Pulse 72 12/09/23 07:05 Resp 15 12/09/23 01:44 BP 111/72 12/09/23 07:05 Pulse Ox 92 L 12/09/23 07:42 FiO2 Intake & Output 12/08/23 12/09/23 12/09/23 18:59 06:59 18:59 Intake Total 1350 Output Total 335 485 Balance 1015 -485 Weight 90.9 kg Intake: IV 1350 Output: Drainage 75 150 Right Lower Posterior 75 150 Back Urine 160 335 Estimated Blood Loss 100 Other: Voiding Method Indwelling Catheter Indwelling Catheter Assessment and Plan Assessment: impression: Postoperative #1 right percutaneous nephrostolithotomy. The patient vital signs are stable and her urine is clear. She is having too much pain for discharge. The Montalvo catheter be removed. She will ambulate and eat a regular diet. I anticipate discharge within 24 hours
--- NOTE | 2023-12-10 07:23 | P.DS ---
Providers Date of admission: 12/09/23 12:35 Attending physician: Get Harris MD Primary care physician: Evangelista Dumont [place] Hospital Course: Elvis was admitted 12/08/23 for a percutaneous nephrostolithotomy. She underwent this by . she has done well. Her diet has been advanced. She is now ambulating. Her pain is under control. The urine is clear. She is voiding well. She'll be discharged home. Regular diet. She'll go home with the nephrostomy tube. She will be seen in the office on 12/14/23. She's been given prescription of [place] and Keflex. Patient Condition at Discharge: Good Plan - Discharge Summary Discharge Rx Participant: Yes New Discharge Prescriptions: New HYDROcodone/APAP 5-325MG [[place] 5-325] 1 tab PO Q4HR PRN #14 tab PRN Reason: Pain Cephalexin [Keflex] 500 mg PO Q8HR 1 Days #20 cap No Action U Nita-Otc 1 tab PO DAILY Venlafaxine HCl [Effexor] 37.5 mg PO DAILY Thrive-Mvi 1 tab PO DAILY Discharge Medication List Thrive-Mvi 1 tab PO DAILY 12/04/23 [History] U Nita-Otc 1 tab PO DAILY 12/04/23 [History] Venlafaxine HCl [Effexor] 37.5 mg PO DAILY 12/04/23 [History] Cephalexin [Keflex] 500 mg PO Q8HR 1 Days #20 cap 12/10/23 [Rx] HYDROcodone/APAP 5-325MG [[place] 5-325] 1 tab PO Q4HR PRN #14 tab 12/10/23 [Rx] Follow up Appointment(s)/Referral(s): Get Harris MD [STAFF PHYSICIAN] - 12/14/23 (home with n tube) Discharge Disposition: HOME SELF-CARE
[2023-12-10 07:43] VITALS: BP 111/71; PULSE 82; TEMP 97.9
[2023-12-10 08:45] VITALS: RESP 16
== END 2023-12-10 13:52 | disposition home or self-care (01) ==
LOC: OR 05:48 → 4SSUR 09:30 → OR 12-09 12:35
PROVIDERS: ADMIT Urology; ATTEND Urology
DX: N20.1 Calculus of ureter (principal); N20.0 Calculus of kidney; Z87.440 Personal history of urinary (tract) infections; Z87.442 Personal history of urinary calculi
CPT/HCPCS: 50081; 96376 ×3; 96372 ×3; 96374; 96375; 94760; 86900; 86901; 86850; 82365; 74018; G0378 ×2; C1769 ×3; C1729 ×2; J2250; J0330; J1644 ×3; J1100; J2710; J0690; J2405; J2001; J3010; J1170 ×4; J1885 ×3; J2704; Q9967; J2371; 50432

== ENCOUNTER → 2024-09-09 | Outpatient (CLI) | payer BC ==
--- NOTE | 2024-09-09 09:29 | MM ---
Reason for Exam: Screening (asymptomatic). Last mammogram was performed 1 year(s) and 1 month(s) ago. Patient History: Menarche at age 10. First Full-Term at age 15. Postmenopausal. 07/2019, Benign Stereotactic Core Biopsy on the right side. Risk Values: Raya 5 year model risk: 1.3%. NCI Lifetime model risk: 6.9%. Prior Study Comparison: 07/29/2021 Bilateral Screening Mammogram, [facility]. 08/08/2022 Bilateral MG screening mammo w CAD, [facility]. 08/10/2023 Bilateral MG 3D screening mammo w/cad, [facility]. Tissue Density: There are scattered areas of fibroglandular density. Findings: Analyzed By CAD. There is no suspicious group of microcalcifications or new suspicious mass in either breast. Overall Assessment: Negative, BI-RAD 1 Management: Screening Mammogram of both breasts in 1 year. . Patient should continue monthly self-breast exams. A clinical breast exam by your physician is recommended on an annual basis. This exam should not preclude additional follow-up of suspicious palpable abnormalities. Note on Raya scores and lifetime risk: 1. A Raya score greater than 3% is considered moderate risk. If this is the case, consider specialist referral to assess eligibility for a risk reducing agent. 2. If overall lifetime risk for the development of breast cancer is 20% or higher, the patient may qualify for future screening with alternating mammogram and breast MRI. [facility], , 09/09/2024 9:26 AM. Electronically signed and approved by: Misael Cox M.D. Radiologis
== END | disposition home or self-care (01) ==
LOC: RADMAMWWP 09:10
PROVIDERS: ATTEND Family Medicine
DX: Z12.31 Encounter for screening mammogram for malignant neoplasm of breast (principal); R92.323 Mammographic fibroglandular density, bilateral breasts; Z78.0 Asymptomatic menopausal state
CPT/HCPCS: 77063; 77067

== ENCOUNTER → 2025-01-09 | Outpatient (CLI) | payer OTHER ==
[2025-01-09 15:49] LABS: INR 0.94 sec (0.93-1.11); Prothrombin Time 10.6 sec (9.9-11.9)
[2025-01-09 15:51] LABS: Anion Gap 9.60 mmol/L (4.00-12.00); BUN/Creat Ratio 22.00 Ratio (12.00-20.00); Blood Urea Nitrogen 17.6 mg/dL (9.0-27.0); Calcium 9.1 mg/dL (8.7-10.3); Carbon Dioxide 24.4 mmol/L (21.6-31.8); Chloride 105 mmol/L (96-109); Glucose 102 mg/dL (70-110); Potassium 4.8 mmol/L (3.5-5.5); Sodium 139 mmol/L (135-145)
[2025-01-09 16:09] LABS: Basophils # (A) 0.07 X 10*3/uL (0.00-0.10); Basophils % (A) 1.1 %; Eosinophils # (A) 0.30 X 10*3/uL (0.04-0.35); Eosinophils % (A) 4.6 %; HCT 41.8 % (37.2-46.3); HGB 13.1 g/dL (12.0-15.0); Immature Grans, Automated 0.30 %; Lymphocytes # (A) 1.84 X 10*3/uL (0.90-5.00); Lymphocytes % (A) 28.0 %; MCH 28.2 pg (27.0-32.0); MCHC 31.3 g/dL (32.0-37.0); MCV 89.9 FL (80.0-97.0); Monocytes # (A) 0.54 X 10*3/uL (0.20-1.00); Monocytes % (A) 8.2 %; NRBC Per 100 WBC 0 X 10*3/uL (0.00-0.01); Neutrophils # (A) 3.80 X 10*3/uL (1.80-7.70); Neutrophils % (A) 57.8 %; Platelet Count 377 X 10*3/uL (140-440); RBC 4.65 X 10*6/uL (4.10-5.20); RDW 13.9 % (11.5-14.5); WBC 6.57 X 10*3/uL (4.50-10.00)
== END | disposition home or self-care (01) ==
LOC: LABPAT 08:39
PROVIDERS: ATTEND Orthopaedic Surgery
DX: Z01.818 Encounter for other preprocedural examination (principal); Z22.322 Carrier or suspected carrier of Methicillin resistant Staphylococcus aureus; M17.12 Unilateral primary osteoarthritis, left knee
CPT/HCPCS: 36415; 80048; 85025; 85610; 87070; 93005

== ENCOUNTER 2025-01-24 07:53 | Day surgery (SDC) | payer BC, OTHER ==
[2025-01-19 08:44] VITALS: BMI 38.7
--- NOTE | 2025-01-23 08:15 | P.HPOR ---
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 She is having anterior medial pain with weightbearing activities. She notes intermittent giving way. She has been limping. She has tried medications in addition to previous injections without much relief. She had a previous arthroscopy 10 years ago. Review of Systems Per HPI Past Medical History Past Medical History: Osteoarthritis (OA) Additional Past Medical History / Comment(s): KIDNEY STONES, L knee pain History of Any Multi-Drug Resistant Organisms: None Reported Past Surgical History: Cholecystectomy, Orthopedic Surgery, Tubal Ligation Additional Past Surgical History / Comment(s): ARTHROSCOPIC RIGHT AND LEFT KNEE; benign right breast stereo biopsy 07/21/19; right knee replacement Past Anesthesia/Blood Transfusion Reactions: Family History of Problems w/ Anesthesia Additional Past Anesthesia/Blood Transfusion Reaction / Comment(s): MOM GETS VERY AGITATED WITH ANESTHESIA; no hx of blood transfusion Smoking Status: Never smoker - Past Family History Mother Family Medical History: No Reported History Additional Family Medical History / Comment(s): Maternal grandmother had CA- unknown Medications and Allergies Home Medications Medication Instructions Recorded Confirmed Type Thrive-Mvi 1 tab PO DAILY 12/04/23 01/18/25 History Venlafaxine HCl [Effexor] 37.5 mg PO QAM 12/04/23 01/18/25 History Allergies Allergy/AdvReac Type Severity Reaction Status Date / Time adhesive tape Allergy BLISTERS Verified 01/18/25 15:57 Physical Examination - Knee left Appearance: effusion Effusion grade: grade 3 Varus alignment in stance: 10 degrees Tenderness with palpation: anterior, medial Pain: throughout ROM Gait: limping ROM: extension: -10 degrees ROM: flexion: 85 degrees Meniscal tests: medial meniscal tests: positive, medial joint line pain: positive Results The patient is a well-developed well-nourished female approximately 5 foot tall, 200 pounds of endomorphic habitus. HEENT exam is nonfocal, neck is supple. She has painless passive motion of the left hip. Straight leg raise is n egative. She is tender about the medial joint line of the left knee. Collaterals are stable, Manuelito is negative, Nevaeh's is equivocal. Her distal neurovascular exam appears intact in the left lower extremity. - Diagnostic results Knee x-ray: image reviewed (Trays of the left knee obtained the office show severe medial and patellofemoral compartment osteoarthrosis with subchondral sclerosis and cystic changes. There is distal medial femoral subluxation.) Assessment and Plan Assessment: Left knee severe medial and patellofemoral compartment osteoarthrosis Plan: I talked to the patient at length regarding her condition along with treatment options. At this point she is quite symptomatic having pain and mechanical symptoms related to her left knee osteoarthrosis despite conservative measures. After a thorough discussion she opts to proceed with surgery. We will plan to proceed with a left total knee arthroplasty. Risks and benefits were discussed at length in layman's terms. We will institute DVT prophylaxis postoperatively.
[~2025-01-24 07:53] MED LIST changes: -GENTAMICIN 120 MG in SODIUM CHLORIDE 0.9% 100 ML IVPB PRN; +TRANEXAMIC 1,000 MG/100ML-NACL 1,000 MG in SALINE 1 100ML.BAG IVPB PRN
[2025-01-24] MEDS ORDERED: HYDROmorphone 0.5 MG/0.5 ML SYRINGE IVP PRN ×2 (08:16→11:46)
[2025-01-24] MEDS: ACETAMINOPHEN TAB 500 MG TAB PO PRN (08:45)
[2025-01-24] MEDS: MELOXICAM 7.5 MG TAB PO PRN (08:45)
[2025-01-24] MEDS: LIDOCAINE 1% (10MG/ML) FOR IV START INTRADERMA STA (08:55)
[2025-01-24] MEDS: IV FLUID CONTINUATION 1,000 ML IV ONE (08:55)
[2025-01-24] MEDS: LACTATED RINGERS 1,000 ML IV SCH (08:55)
[2025-01-24] MEDS: DEXAMETHASONE SOD PHOSPHATE 4 MG/ML 1 ML VIAL IV ONE (08:57)
[2025-01-24] MEDS: ONDANSETRON 4 MG/2 ML VIAL IVP ONE (08:57)
[2025-01-24] MEDS: fentaNYL (PF) 50 MCG/ML 2 ML AMP IVP PRN (09:32)
[2025-01-24] MEDS: MIDAZOLAM 2 MG/2 ML VIAL IV PRN (09:32)
[2025-01-24] MEDS ORDERED: PROPOFOL 10 MG/ML 20 ML VIAL IV ONE (09:58)
[2025-01-24] MEDS ORDERED: ROPIVACAINE 5 MG/ML 30 ML VIAL ONE (09:58)
[2025-01-24] MEDS ORDERED: PHENYLEPHRINE-0.9% NACL SYG 1,000 MCG/10 ML SYRINGE ONE (09:58)
[2025-01-24] MEDS ORDERED: SODIUM CHLORIDE 0.9% (PF) 10 ML VIAL ONE (09:58)
[2025-01-24] MEDS ORDERED: DEXAMETHASONE SOD PHOSPHATE 4 MG/ML 1 ML VIAL ONE (09:58)
[2025-01-24] MEDS ORDERED: fentaNYL (PF) 50 MCG/ML 2 ML AMP ONE (09:58)
[2025-01-24] MEDS ORDERED: MIDAZOLAM 2 MG/2 ML VIAL ONE (09:58)
[2025-01-24] MEDS ORDERED: TRANEXAMIC 1,000 MG/100ML-NACL PREMIX BAG ONE (09:58)
[2025-01-24] MEDS ORDERED: ONDANSETRON 4 MG/2 ML VIAL ONE (09:58)
--- NOTE | 2025-01-24 10:30 | P.ANPRN ---
Procedure Note - Anesthesia - Nerve Block Performed Left Adductor Canal Infusion Time Out Performed: Yes (0932) Date of Procedure: 01/24/25 Procedure Start Time: :33 Procedure Stop Time: :38 Location of Patient: PreOp Indication: Acute Post-Operative Pain, Requested by Surgeon Specifically requested for management of pain by : Robi Matta Sedation Type: Sedate with meaningful contact maintained Preparation: Sterile Prep, Sterile Dressing Position: Supine Catheter Depth at Skin (cm): 8 Catheter: Indwelling Needle Types: Pajunk Needle Gauge: 18 Ultrasound used to visualize needle placement: Yes Ultrasound used to observe medication spread: Yes Injectate: 0.5% Ropivacaine (see comment for volume) (15cc+10cc nacl pf+decadron 4mg) Blood Aspirated: No Pain Paresthesia on Injection Noted: No Resistance on Injection: Normal Image Stored and Saved: Yes Events: Uneventful and Well Tolerated
--- NOTE | 2025-01-24 10:31 | P.ANPRN ---
Procedure Note - Anesthesia - Nerve Block Performed Left iPack Single Time Out Performed: Yes (0932) Date of Procedure: 01/24/25 Procedure Start Time: :39 Procedure Stop Time: :42 Location of Patient: PreOp Indication: Acute Post-Operative Pain, Requested by Surgeon Specifically requested for management of pain by DrTiffani: Robi Matta Sedation Type: Sedate with meaningful contact maintained Preparation: Sterile Prep Position: Supine Catheter: None Needle Types: Pajunk Needle Gauge: 21 Ultrasound used to visualize needle placement: Yes Ultrasound used to observe medication spread: Yes Injectate: 0.5% Ropivacaine (see comment for volume) (15cc+10cc nacl pf+decadron 4mg) Blood Aspirated: No Pain Paresthesia on Injection Noted: No Resistance on Injection: Normal Image Stored and Saved: Yes Events: Uneventful and Well Tolerated
[2025-01-24] MEDS: LACTATED RINGERS 1,000 ML IV ONE (10:51)
[2025-01-24] MEDS ORDERED: ONDANSETRON 4 MG/2 ML VIAL IVP PRN (11:46)
[2025-01-24] MEDS ORDERED: MAGNESIUM HYDROXIDE 2,400 MG/30 ML CUP PO PRN (11:46)
[2025-01-24] MEDS ORDERED: NALOXONE 0.4 MG/ML 1 ML VIAL IV PRN (11:46)
[2025-01-24] MEDS ORDERED: HYDROcodone/APAP 5-325MG 1 EACH TAB PO PRN (11:46)
[2025-01-24] MEDS ORDERED: HYDROmorphone 1 MG/ML 1 ML SYRINGE IVP PRN (11:46)
--- NOTE | 2025-01-24 12:07 | P.OP ---
Date of Procedure: 01/24/25 Preoperative Diagnosis: Left knee severe tricompartmental osteoarthrosis Postoperative Diagnosis: Same Procedure(s) Performed: Left total knee arthroplastyposterior stabilizedcemented Implants: DePuy attune size 5 narrow cemented femoral component, size 4 cemented tibial component with a 14 x 50 mm stem extension, 9 mm articular surface, 32 mm cemented patellar component. This is a posterior stabilized implant. Anesthesia: regional, spinal Surgeon: Robi Matta Drywall Finisher Foreman #1: Abisai Moeller Estimated Blood Loss (ml): 50 Pathology: none sent Condition: stable Disposition: PACU Indications for Procedure: The patient is a 59-year-old female who presents with progressive left knee pain secondary to osteoarthrosis despite conservative measures. A discussion of the risks and benefits of operative intervention versus continued conservative measures was made with the patient. She opted to proceed with surgery. Operative risks include infection, neurovascular injury, development of blood clots, fracture, possible component loosening/failure and possible need for subsequent procedures was discussed. Informed consent was obtained. Operative Findings: As below Description of Procedure: The patient was brought to the operating room, and after induction of spinal anesthesia the left lower extremity was prepped and draped in a normal fashion. The tourniquet was inflated to 270 mm marker. A longitudinal incision extending 3 finger breaths above the superior pole of patella extending to the medial aspect the tibial tubercle was then made. The skin and subcutaneous tissues were divided sharply. Electrocautery was used for hemostasis. A medial parapatellar arthrotomy was performed. The medial soft tissues to include the superficial and deep portions of the medial collateral ligament were elevated subperiosteally. The patella was everted. A portion of the retropatellar fat pad was excised sharply. The anterior cruciate ligament was sacrificed. Blunt retractors were placed. A starting hole was made in the distal femur 1 cm anterior to the posterior cruciate ligament origin. An intramedullary femoral guide was then inserted planning on 5 valgus distal cut with 9 mm distal resection. The cutting block was pinned in place. The distal cut was then made. The posterior referencing sizing guide was utilized. I felt size 5 narrow was most appropriate. 3 of external rotation was built into the system and verified off the trans-epicondylar axis and the posterior condyles. The cutting block was pinned in place. The anterior, posterior, and chamfer cuts then made. Bone fragments were removed. The intercondylar guide was placed and the notch cut was made with a sagittal saw. The bone block was removed in one fragment. The trial component was then placed. There is good anterior to posterior and medial to lateral fit. The distal peg holes were drilled. The trial component was removed. Attention was then paid towards preparing the proximal tibia. An extra medullary guide was utilized in line with the tibial shaft and second metatarsal distally. I planned on 2 mm resection from the medial compartment. The cutting block was pinned in place. The proximal tibial cut was then made. The bone was removed in one fragment. The remnants of the medial and lateral menisci were excised at the capsular junction with electrocau sindy. The tibia sized most appropriately at size 4. The trial femoral and tibial components were placed along with a 9 mm articular surface. I was able to obtain full flexion and extension with internal and external rotation. After several flexion and extension cycles, the tibial rotation was marked with electrocautery line with the medial one third of the tibial tubercle. Attention was then paid towards preparing the patella. A patella reamer was utilized taking stem to 14 mm of bone stock. A good flush cut was made. The patella sized most appropriately 32 mm. The peg holes were drilled. The trial components placed. I had good patellofemoral tracking with no hands technique. The trial components were then removed. The tibia was prepared in the appropriate rotation with appropriate drill and keel punch. The posterior osteophytes were removed with a curved osteotome. The flexion and extension gaps were checked and felt to be symmetric at 9 mm. A trial components were t hen removed. The bony surfaces were prepared with pulsatile lavage and dried. The tibial component was then cemented place was fully seated. Excess cement was removed. The femoral component cemented place and was fully seated. Excess cement was removed. The trial 9 mm articular surface was placed and the knee was put in full extension. The patella component was cemented place. After the cement had sufficiently hardened, the knee was again taken through a range of motion. Again I was able to obtain full flexion and extension with varus and valgus stress. The trial 9 mm articular surface was removed and the final one inserted. This was fully seated. Care was taken to avoid any soft tissue interposition. Pulsatile lavage was again utilized. The medial parapatellar arthrotomy was closed with #2 Ethibond suture. The tourniquet was deflated with approximately 60 minutes total tourniquet time. Final hemostasis was obtained with the cautery. There was minimal bleeding therefore a deep drain was not placed. The subcutaneous tissues were reapproximated with interrupted 2-0 Vicryl sutures. The skin was reapproximated with 3-0 subcuticular strata fix suture. Skin tape and adhesive was applied. A sterile dressing was applied. The patient was awoken from sedation and transferred to recovery room in good condition. Blood loss was estimated at 50 mL. No complications were incurred. Sponge and needle counts were correct at the end of the case. Abisai KAMARA assisted during the major components of this case to include exposure, bone resection, implantation, and closure.
--- NOTE | 2025-01-24 12:46 | XR ---
EXAMINATION TYPE: XR knee limited LT DATE OF EXAM: 01/24/2025 12:30 PM INDICATION: Patient age:Female; 59 years old; Reason for study: POST SURGICAL XRAY; [facility]. pain COMPARISON: Left knee radiograph 01/02/2025 TECHNIQUE: The Left knee(s) was examined in frontal and lateral projections. FINDINGS: Status post total knee arthroplasty changes with hardware in appropriate alignment and in tact. No evidence of fracture. Subcutaneous lucencies and lucencies within the joint consistent with surgical changes. IMPRESSION: Status post total knee arthroplasty changes with hardware intact and appropriate alignment. No fractu res identified. [facility], , 01/24/2025 12:43 PM
[2025-01-24] MEDS: ROPIVACAINE 1,100 MG, SODIUM CHLORIDE 0.9% 500 ML 330 ML, EMPTY PAIN BALL 1 EACH MISCELLANE PRN (14:18)
[2025-01-24] MEDS: HYDROcodone/APAP 7.5-325MG 1 EACH TAB PO PRN (14:30)
[2025-01-24] MEDS: SCOPOLAMINE 1 MG/72 HR PATCH TRANSDERM ONE (15:49)
[2025-01-24] MEDS: SENNOSIDES-DOCUSATE SODIUM 1 EACH TAB PO SCH (19:54)
[2025-01-24 23:07] VITALS: RESP 16
--- NOTE | 2025-01-25 01:50 | CONS ---
CONSULTATION REASON FOR CONSULTATION: Advice regarding DJD and other medical issues, requested by Orthopedics. HISTORY OF PRESENT ILLNESS: This is a 59-year-old female with a past medical history of kidney stones, DJD, was having low blood pressure, underwent left total knee arthroplasty. There is no history of fever, rigors, or chills. No history of cough or sputum at this time. The blood pressure has improved to 106/68 at this time. PAST MEDICAL HISTORY: History of DJD, history of kidney stones. Rest of history and chart are also reviewed. MEDICATIONS: Effexor XR. ALLERGIES: Adhesive tapes. FAMILY HISTORY: History of cancer. SOCIAL HISTORY: No history of smoke or alcohol. REVIEW OF SYSTEMS: Fourteen-point review of systems negative except as mentioned earlier. PHYSICAL EXAMINATION: VITAL SIGNS: Pulse 76, blood pressure 106/68, respirations 14. HEENT: Conjunctivae normal. NECK: No JVD. CARDIOVASCULAR: S1 and S2. ABDOMEN: Soft, nontender. LEGS: Status post knee arthroplasty. NERVOUS SYSTEM: Nonfocal. LABS: Not available. ASSESSMENT: 1. Status post left knee arthroplasty. 2. History of DJD. 3. History of kidney stones. 4. History of anxiety. RECOMMENDATIONS AND DISCUSSION: This 59-year-old woman presented after surgery. She is medically stable at this time. I recommend to continue the current management. DVT prophylaxis. Incentive spirometry. The patient may be asked to follow up with the primary physician closely after discharge. Encourage p.o. fluids. We will follow the patient closely. KIRA / SHERRIEN: [id number] /
--- NOTE | 2025-01-25 06:27 | P.PN ---
Progress Note - Text Progress Note Date: 01/25/25 Postoperative day # 1 status post total knee arthroplasty, and adductor canal catheter placed for postoperative analgesia, currently at ropivacaine 0.2% 8 mL per hour and continuous infusion, visual analogue scale is 3/10, patient using oral pain medication for breakthrough pain. Assessment and plan= Acute postoperative pain, adductor canal catheter for pain control, pain is well controlled we'll continue the same management.
[2025-01-25 07:55] VITALS: BP 102/66; PULSE 73; TEMP 97.8
[2025-01-25 07:56] LABS: Basophils # (A) 0.01 X 10*3/uL (0.00-0.10); Basophils % (A) 0.1 %; Eosinophils # (A) 0.01 X 10*3/uL (0.04-0.35); Eosinophils % (A) 0.1 %; HCT 35.1 % (37.2-46.3); HGB 11.0 g/dL (12.0-15.0); Immature Grans, Automated 0.30 %; Lymphocytes # (A) 1.25 X 10*3/uL (0.90-5.00); Lymphocytes % (A) 8.0 %; MCH 28.5 pg (27.0-32.0); MCHC 31.3 g/dL (32.0-37.0); MCV 90.9 FL (80.0-97.0); Monocytes # (A) 0.96 X 10*3/uL (0.20-1.00); Monocytes % (A) 6.1 %; NRBC Per 100 WBC 0 X 10*3/uL (0.00-0.01); Neutrophils # (A) 13.36 X 10*3/uL (1.80-7.70); Neutrophils % (A) 85.4 %; Platelet Count 281 X 10*3/uL (140-440); RBC 3.86 X 10*6/uL (4.10-5.20); RDW 13.9 % (11.5-14.5); WBC 15.64 X 10*3/uL (4.50-10.00)
[2025-01-25] MEDS: MULTIVITAMINS, THERA 1 EACH TAB PO SCH (08:53)
[2025-01-25] MEDS: RIVAROXABAN 10 MG TAB PO SCH (08:53)
[2025-01-25] MEDS: VENLAFAXINE HCL ER 37.5 MG CAP PO SCH (08:53)
--- NOTE | 2025-01-25 12:15 | P.DS ---
Providers Date of admission: 01/24/2025 Expected date of discharge: 01/25/25 Attending physician: Robi Matta Consults: 01/24/25 11:46 Consult Physician Routine Consulting Provider: Marv Landers Consult Reason/Comments: medical management s/p left total knee arthroplasty Do you want consulting provider notified?: Yes Primary care physician: Samantha Aranda MD Hospital Course: Date of admission: 01/24/2025 Date of discharge: 01/25/2025 Admission diagnosis: Left knee osteoarthritis Discharge diagnosis: Same Attending physician: Dr. Matta Surgical procedures: Left total knee arthroplasty Brief history: Patient is a 59-year-old female with a history of progressive primary left knee osteoarthritis. At this point patient has failed conservative treatment measures and has opted to proceed with a elective left total knee arthroplasty. Hospital course: Details of patient's surgery can be found in operative report. Patient tolerated the procedure well and was subsequently transported to orthopedic floor. Patient's orthopeidc and medical care was provided daily. Patient had daily laboratory tests performed for evaluation of overall blood counts. Patient had daily physical therapy to include strengthening range of motion as well as education with walker ambulation. Patient was treated with Xarelto for their postoperative DVT prophylaxis during their inpatient stay. Patient was noted to have a relatively uneventful postoperative course. Patient reported satisfactory pain control with oral pain medications by postoperative day 1. Patient showed satisfactory progress with physical therapy. Patient moved steadily through the program and had no difficulty meeting the goals by postoperative day 1. Given patient's otherwise satisfactory course and having met physical therapy goals, plan is to discharge patient home with health services on postoperative day 1. Discharge condition/disposition: Patient will be discharged home with health services in stable condition. Discharge medications: Instructions are given on resumption of patient's normal daily medications per primary care recommendation, in addition patient will be prescribed [place]; senna; Eliquis 2.5 mg twice daily x 2 weeks. Discharge instructions: 1. Wound care and infection precautions, keep incision dry and covered while showering, no lotions, creams, moisturizers. No soaking, tubs, pools, hottubs. Do not scrub over the incision. 2. Weight-bear as tolerated with walker / cane until follow-up. 3. Ice and elevate when necessary. Do not exceed 20 minutes per hour with ice pack. 4. Utilize compression sleeve until seen at first follow up appointment. 5. Visiting nursing care. 6. Home physical therapy including home CPM. 7. Pain meds and anticoagulants per prescription. 8. Pain medication has potential to cause constipation. Increase oral fluid and fiber intake. Contact primary care provider if you have not had a bowel movement within 48 hours after discharge 9. No anti-inflammatory medication until discussed at first post operative visit, this including Motrin, Aleve, Mobic, Diclofenac. 10. Follow up in office at 2 weeks postop with Fletcher Mcintosh PA-C / Abisai Moeller PA-C 11. Follow up with your primary care doctor 7-10 days after discharge. 12. Contact [facility] with any questions, . Assessment: Left knee osteoarthritis Procedures: Left total knee arthroplasty Patient Condition at Discharge: Good Plan - Discharge Summary Discharge Rx Participant: Yes New Discharge Prescriptions: New Apixaban [Eliquis] 2.5 mg PO BID #60 tab Sennosides/Docusate Sodium [Senna Plus 8.6-50 mg Softgel] 1 each PO DAILY #20 capsule HYDROcodone/APAP 7.5-325MG [[place] 7.5-325] 1 - 2 tab PO Q6HR PRN 3 Days #32 tab PRN Reason: Pain No Action Venlafaxine HCl [Effexor] 37.5 mg PO QAM Thrive-Mvi 1 tab PO DAILY Discharge Medication List Thrive-Mvi 1 tab PO DAILY 12/04/23 [History] Venlafaxine HCl [Effexor] 37.5 mg PO QAM 12/04/23 [History] Apixaban [Eliquis] 2.5 mg PO BID #60 tab 01/25/25 [Rx] HYDROcodone/APAP 7.5-325MG [[place] 7.5-325] 1 - 2 tab PO Q6HR PRN 3 Days #32 tab 01/25/25 [Rx] Sennosides/Docusate Sodium [Senna Plus 8.6-50 mg Softgel] 1 each PO DAILY #20 capsule 01/25/25 [Rx] Follow up Appointment(s)/Referral(s): Abisai Moeller, JH [PHYSICIAN VBA PROGRAMMER] - 02/13/25 8:15 am [facility],Equipment [NON-STAFF] - As Needed (Call [facility] once home to arrange delivery of the CPM machine. ) Samantha Aranda MD [Primary Care Provider] - 1 Week [facility], [NON-STAFF] - 1-2 Days ([facility] will call you to schedule your in home physical therapy and nursing visits.) Patient Instructions/Handouts: Knee Replacement (GEN) Activity/Diet/Wound Care/Special Instructions: Orthopedic Discharge Instructions: 1. Wound care and infection precautions, keep incision dry and covered while showering, no lotions, creams, moisturizers. No soaking, pools, hot tubs. Do not scrub over incision. 2. Weight-bear as tolerated with walker / cane until follow-up. 3. Ice and elevate when necessary. Do not exceed 20 minutes per hour with ice pack. 4. Utilize compression sleeve until seen at first follow up appointment. 5. Pain meds and anticoagulants per prescription. 6. Pain medication has potential to cause constipation. Increase oral fluid and fiber intake. Contact primary care provider if you have not had a bowel movement within 48 hours after discharge. 7. No anti-inflammatory medication until discussed at first post operative visit, this including Motrin, Aleve, Mobic, Diclofenac. 8. Follow up in office at 2 weeks postop with Fletcher Mcintosh PA-C / Abisai Moeller PA-C 9. Follow up with your primary care doctor 7-10 days after discharge. 10. Contact [facility] with any questions, . Keep incision clean, dry, intact. While showering, cover dressing with Saran wrap. Keep fusion tape on until follow-up appointment in office in 2 week Discharge Disposition: HOME WITH HOME HEALTH SERVICES
--- NOTE | 2025-01-25 12:22 | P.PN ---
Subjective Progress Note Date: 01/25/25 Principal diagnosis: Left knee osteoarthritis Patient was seen at bedside this morning lying in semirecumbent position with dressing over left knee. Patient says she just finished working with therapy and walked out of the hallway and up and down stairs. She says her pain is un myron control with oral medication. She says she has been urinating since surgery yesterday without issue. States she has not had a bowel movement yet, however, patient says she has been passing gas. Patient denies any other issues at this time. Objective - Vital Signs Vital signs: Vital Signs Temp 97.8 F 01/25/25 07:54 Pulse 73 01/25/25 07:54 Resp 16 01/25/25 07:54 BP 102/66 01/25/25 07:54 Pulse Ox 98 01/25/25 07:54 FiO2 Intake & Output 01/24/25 01/25/25 01/25/25 18:59 06:59 18:59 Intake Total 1550 Output Total 50 Balance 1500 Weight 90.6 kg Intake: IV 1550 Output: Estimated Blood Loss 50 Other: # Voids 1 2 # Bowel Movements 0 - Exam Left knee: Incision is clean, dry, and intact. The exofin fusion tape is in good condition. There is minimal soft tissue swelling and ecchymosis surrounding the medial and lateral aspects of the incision. Calf is soft, no tenderness with palpation. Plantar flexion, dorsiflexion, EHL, FHL are intact. Sensory exam to light touch throughout the extremity is intact, dorsal pedis pulses 2+. - Labs CBC & Chem 7: 01/25/25 04:25 Labs: Abnormal Lab Results - Last 24 Hours (Table) 01/25/25 Range/Units 04:25 WBC 15.64 H (4.50-10.00) X 10*3/uL RBC 3.86 L (4.10-5.20) X 10*6/uL Hgb 11.0 L (12.0-15.0) g/dL Hct 35.1 L (37.2-46.3) % MCHC 31.3 L (32.0-37.0) g/dL Immature Gran # 0.05 H (0.00-0.04) X 10*3/uL Neutrophils # 13.36 H (1.80-7.70) X 10*3/uL Eosinophils # 0.01 L (0.04-0.35) X 10*3/uL Assessment and Plan Assessment: 1. Left knee osteoarthritis -Postop day 1 status post left total knee arthroplasty Plan: 1. Left knee osteoarthritis -left total knee arthroplasty from , 01/24/2025. Patient stable bedside's morning. Patient does have walker for home. Patient did do well with therapy this morning. Pain under control with oral medication. Discharge home today with health services. 2. Appreciate medical management 3. Pain management -[place] 4. DVT prophylaxis -Xarelto in hospital. Going home with Eliquis 5. GI prophylaxis - senna 6. PT/OT weight-bear as tolerated with walker 7. Encourage incentive spirometer use 8. Discharge planning -discharge home today with health services Time with Patient: Less than 30
--- NOTE | 2025-01-25 18:12 | PN ---
PROGRESS NOTE DATE OF SERVICE: 01/25/2025 SUBJECTIVE: This is a 59-year-old woman who was admitted after left knee arthroplasty, improving significantly. No chest pain. No palpitation. PHYSICAL EXAMINATION: VITAL SIGNS: Pulse is 73, blood pressure n, respirations 16. CHEST: Clear to auscultation. CARDIOVASCULAR: S1, S2. ABDOMEN: Soft. LEGS: Status post surgery. LABORATORY DATA: Noted. ASSESSMENT: 1. Status post left knee arthroplasty. 2. Elevated WBC, possibly reactive. 3. History of degenerative joint disease. 4. History of kidney stones. 5. Anxiety. RECOMMENDATIONS: Recommend to continue current management and treatment. Otherwise resume the home medications. Follow closely with primary physician. Rest of the recommendations per Orthopedic Surgery include DVT prophylaxis. MMODL / IJN: [id number] / MTDD
== END 2025-01-25 13:11 | disposition home health service (06) ==
LOC: OR 07:53 → 4SSUR 12:04 → OR 01-25 13:11
PROVIDERS: ATTEND Orthopaedic Surgery
DX: M17.12 Unilateral primary osteoarthritis, left knee (principal); F41.9 Anxiety disorder, unspecified; Z87.442 Personal history of urinary calculi; Z90.49 Acquired absence of other specified parts of digestive tract; Z98.51 Tubal ligation status; Z79.01 Long term (current) use of anticoagulants
CPT/HCPCS: 27447; 97161; 64448; 64473; 85025; 73560; C1776; C1713; C1751; J2250; J1100; J0690 ×2; J2405; J3010; J2795; J2704; J2371